=== PATIENT | female | born 1985 | race Caucasian/White ===

== ENCOUNTER 2020-09-19 18:29 | Emergency (ER) | payer BC | END 2020-09-19 20:22 | disposition home or self-care (01) | LOC: JVIRT 18:29 | DX: Z03.818 Encounter for observation for suspected exposure to other biological agents ruled out (principal) | CPT/HCPCS: C9803; G2012-GT; U0003 ==

== ENCOUNTER 2020-10-14 10:30 | Emergency (ER) | payer BC | END 2020-10-14 12:03 | disposition home or self-care (01) | LOC: JVIRT 10:30 | DX: Z11.59 Encounter for screening for other viral diseases (principal) | CPT/HCPCS: C9803; Q3014-GT; U0003 ==

== ENCOUNTER 2020-11-16 10:51 | Emergency (ER) | payer BC | END 2020-11-16 11:16 | disposition home or self-care (01) | LOC: JVIRT 10:51 | DX: Z20.822 Contact with and (suspected) exposure to COVID-19 (principal) | CPT/HCPCS: C9803; G2012-GT; U0003 ==